=== PATIENT | female | born 1990 | race Two or more races ===

== ENCOUNTER 2016-08-20 12:55 | Emergency (ER) | payer OTHER ==
[~2016-08-20] VITALS: Ht 157.5 cm; Wt 77.1 kg
[2016-08-20] MEDS ORDERED: STOOL SOFTENER (13:18)
--- NOTE | 2016-08-20 13:36 | NUR ---
Dr. Gomez at the bedside for MSE.
[2016-08-20 13:48] LABS: *BILIRUBIN,URIN NEGATIVE (NEGATIVE); *BLOOD, URINE 3+ (NEGATIVE); *CLARITY,URINE SLIGHTLY CLOUDY (CLEAR); *COLOR,URINE YELLOW (YELLOW); *KETONES,URINE NEGATIVE (NEGATIVE); *PROTEIN,URINE NEGATIVE (NEGATIVE); *UROBILINOGEN,URINE 0.2 E.U./dl (NORMAL); NITRITE, URINE NEGATIVE (NEGATIVE); UGLUCOSE NEGATIVE (NEGATIVE)
[2016-08-20 13:55] LABS: *URINE HCG, QUAL NEGATIVE (NEGATIVE)
[2016-08-20 14:05] LABS: LEUKOCYTE ESTERASE ,URINE TRACE (NEGATIVE)
[2016-08-20 14:07] LABS: BACTERIA,URINE MODERATE /HPF (NONE SEEN); SQUAMOUS EPITHELIAL CELL,UR MODERATE /HPF (NONE SEEN)
--- NOTE | 2016-08-20 14:41 | NUR ---
pt was d/c to home. d/c instructions given to the pt by dr Gomez.
[2016-08-20 14:42] VITALS: BP 131/68
== END 2016-08-20 14:42 | disposition home or self-care (01) ==
LOC: ER 12:55
DX: R10.9 Unspecified abdominal pain (principal); G89.29 Other chronic pain; I10 Essential (primary) hypertension; Z90.49 Acquired absence of other specified parts of digestive tract
CPT/HCPCS: 84703; A4663